=== PATIENT | female | born 1945 | race Caucasian/White ===

== ENCOUNTER 2019-03-28 07:21 | Day surgery (SDC) | payer MEDICARE ==
[~2019-03-28 07:21] MED LIST: ACETAMINOPHEN 1,000 MG/100 ML BTL IVPB ONE; CEFAZOLIN 2 Gram 2 GM/50 ML BAG IVPB ONE; MECLIZINE 25 MG TABLET PO ONE
[2019-03-28] MEDS ORDERED: KETOROLAC 30 MG/ML VIAL IVP ONE (07:22)
[2019-03-28] MEDS ORDERED: SCOPOLAMINE 1 PATCH TDSY TD ONE (07:22)
[2019-03-28] MEDS ORDERED: MORPHINE SULFATE 4 MG/ML VIAL IVP ONE (07:22)
[2019-03-28] MEDS ORDERED: PROPOFOL 10 MG/ML VIAL IV ONE (07:22)
[2019-03-28] MEDS ORDERED: SEVOFLURANE 250 ML INH ONE (07:22)
[2019-03-28] MEDS ORDERED: DEXAMETHASONE 4 MG/ML 1ML VIAL IVP ONE (07:22)
[2019-03-28] MEDS ORDERED: MIDAZOLAM HCL 2MG/2ML VIAL IV ONE (07:22)
[2019-03-28] MEDS ORDERED: FENTANYL PF 100MCG/2ML VIAL IV ONE (07:22)
[2019-03-28] MEDS ORDERED: LIDOCAINE 2% MDV (20MG/ML) 20ML VIAL IV ONE (07:22)
[2019-03-28] MEDS ORDERED: ONDANSETRON HCL IV 4 MG/2 ML VIAL IVP ONE (07:22)
[2019-03-28] MEDS ORDERED: RINGERS SOLUTION,LACTATED 1,000 ML IV ONE (08:00)
[2019-03-28] MEDS ORDERED: MORPHINE SULFATE 5 MG/ML PREFILLED SYRINGE IM ONE ×2 (09:35→09:50)
[2019-03-28] MEDS ORDERED: METHYLPREDNISOLONE 40MG/VIAL IU ONE ×2 (09:35→09:50)
[2019-03-28] MEDS ORDERED: BUPIVACAINE 0.5% W/EPI MPF 30 ML VIAL SQ ONE (09:35)
--- NOTE | 2019-03-30 09:50 | Operative Note ---
DATE OF SURGERY: 03/28/2019 PREOPERATIVE DIAGNOSIS: Internal derangement of the left knee. POSTOPERATIVE DIAGNOSES: 1. Diffuse synovitis. 2. Grade 3 chondromalacia of patellofemoral compartment. 3. Grade 3 chondromalacia of the medial femoral condyle. 4. Complex split tear involving the posterior and lateral horn of the lateral meniscus. 5. Grade 3 chondromalacia of lateral femoral condyle. 6. Grade 3-4 chondromalacia of lateral tibial plateau. OPERATION: 1. Left knee arthroscopy with near-complete lateral meniscectomy and debridement of lateral compartment. 2. Left knee arthroscopy with complete synovectomy. 3. Left knee arthroscopy with chondroplasty of all 3 compartments. STAFF SURGEON: Aidan Sher MD ANESTHESIA: General. PREPARATION: Chloraprep. INDIVIDUAL CONSIDERATIONS: None. PROCEDURE: The patient was taken to the operating room and placed supine on the operating room table. The patient had a successful induction with general anesthetic. The left lower extremity was prepped and draped in the usual fashion. The patient had a superolateral inflow cannula placed. Skin was infiltrated with 0.5% Marcaine with epinephrine prior. The knee was then inflated with normal saline. An inferomedial and an inferolateral portal were made in a similar fashion. The arthroscope was introduced through the inferolateral portal up into the pouch. Patellofemoral compartment showed grade 3 changes. There was diffuse synovitis in the pouch and both gutters. This was debrided out with a shaver. Medially, grade 3 changes were seen primarily in the medial femoral condyle. Some soft change in the plateau. Meniscus was intact. Grade 3 changes were smoothed. In the notch, the cruciates were normal. Laterally, again there was a complex split tear involving the posterior and lateral horn of the lateral meniscus. Basically, I removed pretty much all of it with basket forceps and a shaver. Popliteus tendon was normal. Grade 3 changes on the femoral condyle were smoothed. There were grade 4 changes posterior medially on the tibial plateau and surrounding grade 3, which was smoothed. The knee was then irrigated out with saline to remove loose floating debris. Portals were closed with gui, and 20 mL of 0.5% Marcaine with epinephrine along with 4 mg of morphine and 40 mg of Depo-Medrol were injected into the knee. A sterile bulky compressive dressing was applied. The patient tolerated procedure well. Needle and sponge counts were correct. Estimated blood loss was minimal. She was taken back to recovery in good condition. There were no complications. NISHI
== END 2019-03-28 10:50 | disposition home or self-care (01) ==
LOC: SUR 07:21
PROVIDERS: ATTEND Orthopaedic Surgery
DX: S83.272A Complex tear of lateral meniscus, current injury, left knee, initial encounter (principal); M94.262 Chondromalacia, left knee; K21.9 Gastro-esophageal reflux disease without esophagitis; R01.1 Cardiac murmur, unspecified
CPT/HCPCS: 29881; 29876; 01400; J1885; J2405; J3010; J0690; J2270; J1030; J7120

== ENCOUNTER 2019-07-03 06:19 | Day surgery (SDC) | payer MEDICARE ==
[~2019-07-03 06:19] MED LIST changes: -ACETAMINOPHEN 1,000 MG/100 ML BTL IVPB ONE; +CELECOXIB 100 MG CAPSULE PO ONE; +FAMOTIDINE 20MG TABLET PO ONE; +METOCLOPRAMIDE 10 MG TABLET PO ONE; +VANCOMYCIN 1GM/200ML PREMIX 1 GM/200 ML PIGGYBACK IVPB ONE
[2019-07-03] MEDS ORDERED: LIDOCAINE 2% MDV (20MG/ML) 20ML VIAL IV ONE (06:20)
[2019-07-03] MEDS ORDERED: PROPOFOL 10 MG/ML VIAL IV ONE (06:20)
[2019-07-03] MEDS ORDERED: ROPIVACAINE HCL (NAROPIN) /PF 5MG/ML 20ML VIAL IV ONE (06:20)
[2019-07-03] MEDS ORDERED: MIDAZOLAM HCL 2MG/2ML VIAL IV ONE (06:20)
[2019-07-03] MEDS ORDERED: DEXAMETHASONE 4 MG/ML 1ML VIAL IVP ONE (06:20)
[2019-07-03] MEDS ORDERED: RINGERS SOLUTION,LACTATED 1,000 ML IV ONE ×2 (07:20→09:22)
[2019-07-03 07:30] LABS: ABO GROUP O; ANTIBODY SCREEN NEGATIVE (NEGATIVE); RH TYPE POSITIVE
[2019-07-03] MEDS ORDERED: TRANEXAMIC ACID 1,000 MG/10 ML ML IU ONE (09:21)
[2019-07-03] MEDS ORDERED: CEFAZOLIN 1G VIAL IR ONE (09:21)
[2019-07-03] MEDS ORDERED: BUPIVACAINE 0.5% W/EPI MPF 30 ML VIAL IU ONE (09:21)
[2019-07-03] MEDS ORDERED: TRANEXAMIC ACID 1,000 MG/10 ML ML IV ONE (09:21)
[2019-07-03] MEDS ORDERED: HYDROCODONE/APAP 10/325 TABLET PO PRN ×2 (10:25)
[2019-07-03] MEDS ORDERED: BISACODYL 10 MG SUPP RC PRN (10:25)
[2019-07-03] MEDS ORDERED: ONDANSETRON HCL IV 4 MG/2 ML VIAL IVP PRN (10:25)
[2019-07-03] MEDS ORDERED: ZOLPIDEM TARTRATE 5 MG TABLET PO PRN (10:25)
[2019-07-03] MEDS ORDERED: ACETAMINOPHEN 325 MG TAB PO PRN (10:25)
[2019-07-03] MEDS ORDERED: DIPHENHYDRAMINE HCL 25 MG CAPSULE PO PRN (10:25)
[2019-07-03] MEDS ORDERED: NALOXONE 0.4 MG/1 ML VIAL IVP PRN (10:25)
[2019-07-03] MEDS ORDERED: HYDROMORPHONE HCL 2 MG/ML VIAL IM PRN (10:25)
[2019-07-03] MEDS ORDERED: ACETAMINOPHEN W/ CODEINE 300MG/60MG TABLET PO PRN ×2 (10:25)
[2019-07-03] MEDS ORDERED: TRAMADOL HCL 50 MG TABLET PO PRN (10:25)
[2019-07-03] MEDS ORDERED: KETOROLAC 30 MG/ML VIAL IVP PRN (10:25)
[2019-07-03] MEDS ORDERED: MAGNESIUM HYDROXIDE 30 ML UDC PO PRN (10:25)
[2019-07-03] MEDS ORDERED: AL HYDROX/MAG HYDROX 30ML UD PO PRN (10:25)
[2019-07-03] MEDS ORDERED: PANTOPRAZOLE SODIUM 40 MG TABLET PO PRN (12:19)
--- NOTE | 2019-07-03 13:30 | Operative Note ---
DATE OF SURGERY: 07/03/2019 PREOPERATIVE DIAGNOSIS: End-stage arthrosis of the left knee. POSTOPERATIVE DIAGNOSIS: End-stage arthrosis of the left knee. OPERATION: Cemented left total knee arthroplasty using Szymanski [employer] Legion components with a size 6 cobalt chrome Legion femur, a size 5 stemmed tibia baseplate, an 11 mm lipped tibial insert, and a 32 mm all-plastic patella. STAFF SURGEON: Aidan Sher MD ANESTHESIA: Spinal. PREPARATION: Chloraprep. INDIVIDUAL CONSIDERATIONS: None. FIRST ASSESSMENT: Mrs. Anne Marie Velasco PROCEDURE: The patient was taken to the operating room, placed supine on the operating room table. She had a successful induction of a spinal anesthetic. The left lower extremity was prepped and draped in the usual fashion. The patient had a midline approach to the knee. Sharp dissection carried down through skin and subcutaneous tissue. Small veins were coagulated with a Bovie. A medial arthrotomy was performed. The patella was everted and the knee was flexed. The patient had exposed bone at all 3 compartments especially laterally. Fat pad was resected, ACL was sacrificed, and provisional anterior meniscectomies were performed. The capsule was released from the medial proximal tibia. The initial femoral navy fighter pilot hole was then made freehand. The intramedullary femoral cutting jig was placed. It was cut in 7.0 degrees of valgus and adjusted for rotation and secured with pins for a 10 mm resection. The skin guide was placed in 3 degrees of external rotation and the navy fighter pilot holes were impacted. It was found that a size 6 would be appropriate. The anterior and posterior cuts followed by chamfer cuts were made. Osteophytes removed, and a size 6 Legion trial was found to fit well. The tibia was brought forward, and the remainder of the meniscal remnants removed with a Bovie. The extraarticular tibial cutting jig was placed. It was cut in neutral with a 3-degree AP slope. It was set for a 9 mm resection keyed off the high lateral side and secured with pins. When cutting the tibia, care was taken to preserve the PCL insertion on the tibia. After removing osphy, I found that I could easily fit a size 5. It was adjusted for rotation and secured with pins. With an 11 mm trial and femoral trial, there was excellent motion and stability. Ligamentous balance and rotation alignment were thought to be normal. Femoral navy fighter pilot holes were impacted and the tibial keel stamp was impacted, and these trial components were removed. The patient had a relatively thick patella and roughly 9 mm of bone was removed freehand. I was easily able to fit a 32 patella. The 3 navy fighter pilot holes were drilled. The tourniquet was let down briefly to get bleeders posteriorly and then placed back up again. The knee was then thoroughly irrigated out with saline and Ancef irrigation. Bony surfaces were then dried. A size 5 stemmed tibia baseplate was cemented into place followed by impaction of the 11 mm lipped tibial insert followed by cementing in the size 6 cobalt chrome Legion femur followed by cementing in the 32 mm all-plastic patella. The implant surfaces were compressed, excess cement was removed. After the cement had set, there was excellent motion and stability. Ligamentous balance, rotation alignment, and patellofemoral tracking were normal. No lateral release was required. Again thorough irrigation to remove any visual or palpable debris. Tourniquet was let down. Hemostasis was obtained with a Bovie. The capsule was then closed with a running #2 quill. prior to closure, I did infiltrate the skin, subcu, and periosteum with 30 mL of 0.5% Marcaine with epinephrine. The subcu was closed 2- 0 plus Vicryl. Skin was closed with gui. The patient did receive 1 g of tranexamic acid preoperatively. Then 1 g of tranexamic acid was mixed with 30 mL of saline and injected into the knee through a sterile 18-gauge needle, and a sterile bulky compressive MARY CARMEN-type dressing was applied. The patient tolerated the procedure well. Needle and sponge counts were correct. Estimated blood loss was minimal, and she was taken back to recovery in good condition. There were no complications. NISHI
[2019-07-03] MEDS: POTASSIUM CHLORIDE/D5-0.9%NACL 20 MEQ/1,000 ML BAG IV SCH ×2 (13:32→22:00)
--- NOTE | 2019-07-03 14:59 | Rehab Evaluation ---
Patient Information - Patient Information Diagnosis: L knee DJD Ordered Treatment: PT Evaluate and Treat Status: Initial Evaluation Surgery: Yes (L knee TKA) Date of Surgery: 07/03/19 Past Medical/Surgical Hx: PAST MEDICAL/SURGICAL HISTORY Past Surgical History RIGHT KNEE SCOPE RIGHT SHOULDER SX KIANNA C SCOPES PMH - Respiratory Hx Respiratory Disorders No PMH - Cardiovascular Hx Cardiovascular Disorders Yes Hx Hypertension Yes: NEWLY DX'D ON MEDS Hx Vascular Disease Yes: VERICOSE VEINS Hx Heart Murmur Yes Exercise Tolerance Good PMH - Neuro Hx Neurological Disorders No PMH - GI Hx Gastrointestinal Disorders Yes Hx Gastroesophageal Reflux Yes: ON MEDS WITH GOOD RESULTS Comment: ESOPHAGEAL STRICTURE PMH - Hx Genitourinary Disorders No PMH - Endocrine Hx Endocrine Disorders No PMH - Musculoskeletal Hx Musculoskeletal Disorders Yes Hx Arthritis Yes: KNEES Hx Osteoporosis Yes PMH - Psych Hx Psychiatric Problems No PMH - Hematology/Oncology Hx Hematology/Oncology No Disorders Premorbid Status: Detail (The patient was independent with all mobilty prior to surgery.) Social History: Detail (The patient lives with spouse in a two story house with 2 steps at the enterance and 2 handrails. The bathroom is equipped with: a walk in shower, hand held shower, shower bench and standard toilet. Grab bars are present by both shower and toilet. The patient has a two wheeled walker.) Precautions: [place], Fall, Other (WBAT on the L LE.) - Time With Patient Total Time Spent With Patient (Min): 30 Treatment Procedures: Detail (Initial Evaluation, low complexity) Subjective Information - Subjective Information Per Patient (The patient complained of L knee pain level 4-5 at the highest using the 0-10 pain scale.) Objective Data - Mental Status Patient Orientation: Oriented x3 - Visual Perception Appears within normal limits for therapeutic activities - ROM Not within normal limits (The patient's L knee AROM is limited s/p surgery. All other AROM is WNL.) - Strength/Tone Not within normal limits (The patient's LE strength was not tested however is functional.) - Bed Mobility Independent (The patient is independent with supine to and from sit transfer and scooting up in bed.) - Transfers Independent (The patient is independent with sit to and from stand transfer.) - Balance Balance Sitting: Good Balance Standing: Good - Sensation Intact - Gait Detail (The patient ambulated with front wheeled walker a distance of 200 feet WBAT on the L LE with supervision for safety only.) Therapy Assessment - Therapy Assessment Detail (The patient was independent with bed mobility and transfers and supervision for safety. Anticipate the patient will acheive inpt. PT goals in 1 to 2 visits.) Problem List - Problem List Physical Therapy Problem List: Detail (1) Decreased L knee AROM and decreased L LE strength.) Goals - Goals Physical Therapy Goals: 1) The patient will be independent with TKA HEP. 2) The patient will ambulate on stairs with supervision for safety Prognosis - Prognosis Good Plan - Plan Physical Therapy Plan: PT for 1-2 sessions for gait training on stairs and instruction in TKA HEP.
[2019-07-03] MEDS ORDERED: PATIENT OWN MED: MC SCH (17:30)
[2019-07-03] MEDS: CEFAZOLIN 2 Gram 2 GM/50 ML BAG IVPB SCH (19:03)
[2019-07-03] MEDS ORDERED: PATIENT OWN MED: PO PRN (19:52)
[2019-07-03] MEDS ORDERED: TRAMADOL 50 MG PO PRN (19:54)
[2019-07-03] MEDS ORDERED: PATIENT OWN MED: PO SCH (20:00)
[2019-07-03] MEDS: DOCUSATE SODIUM 100 MG CAPSULE PO SCH (22:17)
[2019-07-03] MEDS: TRAMADOL 50 MG PO PRN (23:50)
[2019-07-04] MEDS: CEFAZOLIN 2 Gram 2 GM/50 ML BAG IVPB SCH ×2 (02:23→09:58)
[2019-07-04] MEDS: POTASSIUM CHLORIDE/D5-0.9%NACL 20 MEQ/1,000 ML BAG IV SCH ×2 (05:47→11:52)
[2019-07-04] MEDS: TRAMADOL 50 MG PO PRN ×2 (05:48→11:05)
[2019-07-04 07:08] LABS: HEMOGLOBIN 12.8 gm/dl (11.6-16.0)
[2019-07-04 07:29] LABS: BLOOD UREA NITROGEN 10 mg/dL (8-23); CREATININE 0.5 mg/dL (0.5-0.9); EST GLOMERULAR FILTRATION RATE > 60 mL/min; GLUCOSE,RANDOM 85 mg/dL (74-109)
[2019-07-04] MEDS: DOCUSATE SODIUM 100 MG CAPSULE PO SCH (09:56)
[2019-07-04] MEDS ORDERED: RIVAROXABAN 10 MG TABLET PO SCH (10:00)
[2019-07-04] MEDS ORDERED: FERROUS SULFATE 325 MG TAB PO SCH (10:00)
[2019-07-04] MEDS ORDERED: METOPROLOL SUCCINATE 50MG PO SCH (10:00)
--- NOTE | 2019-07-04 10:48 | Rehab Evaluation ---
Patient Information - Patient Information Diagnosis: L knee DJD Ordered Treatment: OT Evaluate and Treat Status: Initial Evaluation Surgery: Yes (L knee TKA) Date of Surgery: 07/03/19 Past Medical/Surgical Hx: PAST MEDICAL/SURGICAL HISTORY Past Surgical History RIGHT KNEE SCOPE RIGHT SHOULDER SX KIANNA C SCOPES PMH - Respiratory Hx Respiratory Disorders No PMH - Cardiovascular Hx Cardiovascular Disorders Yes Hx Hypertension Yes: NEWLY DX'D ON MEDS Hx Vascular Disease Yes: VERICOSE VEINS Hx Heart Murmur Yes Exercise Tolerance Good PMH - Neuro Hx Neurological Disorders No PMH - GI Hx Gastrointestinal Disorders Yes Hx Gastroesophageal Reflux Yes: ON MEDS WITH GOOD RESULTS Comment: ESOPHAGEAL STRICTURE PMH - Hx Genitourinary Disorders No PMH - Endocrine Hx Endocrine Disorders No PMH - Musculoskeletal Hx Musculoskeletal Disorders Yes Hx Arthritis Yes: KNEES Hx Osteoporosis Yes PMH - Psych Hx Psychiatric Problems No PMH - Hematology/Oncology Hx Hematology/Oncology No Disorders Premorbid Status: Detail (The patient was independent with all mobility, home mgmt, meal prep and laundry tasks prior to surgery.) Social History: Detail (The patient lives with spouse in a two story house with 2 steps at the entrance and 2 handrails. She plans on staying on the main level initially. The bathroom is equipped with: a walk in shower, hand held shower, shower bench and standard toilet. Grab bars are present by both shower and toilet. The patient has a two wheeled walker.) Precautions: [place], Fall, Other (WBAT on the L LE.) - Time With Patient Total Time Spent With Patient (Min): 40 Treatment Procedures: Detail (OT eval low complexity) Subjective Information - Subjective Information Per Patient Objective Data - Pain Pain Present: Yes (08/24) - Mental Status Patient Orientation: Oriented x3 - Visual Perception Appears within normal limits for therapeutic activities - ROM Within normal limits (Garry UE AROM WNL) - Strength/Tone Within normal limits (Garry UE strength WNL) - Coordination Appears within normal limits for therapeutic activities - Bed Mobility Independent (Ind with all bed mobility) - Transfers Independent (Ind with sit to stand from EOB.) - Balance Balance Sitting: Good Balance Standing: Good - Sensation Intact - Gait Detail (Pt ambulating in room with 2 wheeled walker and supervision.) - ADL's/IADL's Detail (Pt educated and able to demonstrate learning of modified LE dressing techniques including doffing slipper socks and briefs and donning jordan sock (with assist), underwear, pants, socks and tennis shoes. Reviewed kitchen and shower safety and modifications, pt verbalized understanding.) Therapy Assessment - Therapy Assessment Detail (Pt is Ind with modified LE dressing techniques.) Problem List - Problem List Physical Therapy Problem List: Detail (1) Decreased L knee AROM and decreased L LE strength.) Occupational Therapy Problem List: Detail (No current IP OT problems identified.) Goals - Goals Physical Therapy Goals: 1) The patient will be independent with TKA HEP. 2) The patient will ambulate on stairs with supervision for safety Occupational Therapy Goals: No current IP OT goals identified. Prognosis - Prognosis Good Plan - Plan Physical Therapy Plan: PT for 1-2 sessions for gait training on stairs and instruction in TKA HEP. Occupational Therapy Plan: No further IP OT recommended. Discharge from OT at this time. Thank you for this referral.
--- NOTE | 2019-07-04 11:30 | Physical Therapy Tx Note ---
Physical Therapy Tx Note - Treatment Note Tolerated: Good Total Time Spent With Patient: 30 Physical Therapy Tx Note: Detail (Patient was supine in bed upon CARDIOVASCULAR SURGICAL TECH arrival. Patient states 7/10 pain in left knee. Patient transferred supine to sit independently. Patient transferred sit to and from stand CGA x1. Patient ambulated 125 feet with wheeled walker CGA x1. Patient descended and ascended 3 steps with walker and stairwell railing CGA x1. Patient transferred sit to supine independently. Patient scooted up in bed independently. Patient performed the following exercises x10 reps each: ankle pumps, glut squeezes, quad sets, heel slides, hamstring sets, and SLR. Patient tolerated treatment well. Patient displays good understanding of ambulation, stair climbing, and HEP. Patient was left supine in bed with call light within reach. Patient discharged from inpatient PT at this time as all goals are met.) Physical Therapy Problem List: Detail (1) Decreased L knee AROM and decreased L LE strength.) Physical Therapy Goals: 1) The patient will be independent with TKA HEP. Met. 2) The patient will ambulate on stairs with supervision for safety. Met. Prognosis: Good Physical Therapy Plan: Patient discharged from inpatient PT at this time as all goals are met.
== END 2019-07-04 13:06 | disposition home health service (06) ==
LOC: SUR 06:19 → MEDSURG 11:37 → SUR 07-04 13:06
PROVIDERS: ATTEND Orthopaedic Surgery
DX: M17.12 Unilateral primary osteoarthritis, left knee (principal); I10 Essential (primary) hypertension; K21.9 Gastro-esophageal reflux disease without esophagitis; M81.0 Age-related osteoporosis without current pathological fracture; R01.1 Cardiac murmur, unspecified; I83.90 Asymptomatic varicose veins of unspecified lower extremity; Z87.891 Personal history of nicotine dependence
CPT/HCPCS: 76942; 80048; 85014; 85018; 86850; 86900; 86901; C1776; J0690; J3370; J3480; J7120